=== PATIENT | female | born 1990 | race Caucasian/White ===

== ENCOUNTER 2018-12-01 22:42 | Emergency (ER) | payer SELFPAY ==
[2018-12-01 22:56] VITALS: BP 106/78; PULSE 77; TEMP 98; BMI 26.6
--- NOTE | 2018-12-01 23:04 | PDOC ---
History of Present Illness - General History Source: Patient, EMS, Friend Exam Limitations: No Limitations - History of Present Illness Initial Comments: 12/02/18 00:02 The patient is a 28 year old female with no significant past medical history who presents to the emergency department via EMS with alcohol intoxication since earlier today. As per EMS, the patient was dropped home via [employer] from being out drinking earlier this evening. The patients friends at bedside reports that the patient arrived home without her keys any subsequently EMS was contacted. On exam, patient is initially unaware of her location and is unable to ambulate . the patient denies any fall or head injury. She denies any other complaints. <Yuly Melissa - Last Filed: 12/02/18 00:02> <Christine Aparicio - Last Filed: 12/02/18 00:32> - General Chief Complaint: Alcohol intoxication Stated Complaint: INTOX Time Seen by Provider: 12/01/18 23:03 Past History <Yuly Melissa - Last Filed: 12/02/18 00:02> - Past Medical History COPD: No - Suicide/Smoking/Psychosocial Hx Smoking History: Never smoked Have you smoked in the past 12 months: No Information on smoking cessation initiated: No Hx Alcohol Use: No Drug/Substance Use Hx: No <Christine Aparicio - Last Filed: 12/02/18 00:32> - Past Medical History Allergies/Adverse Reactions: Allergies Allergy/AdvReac Type Severity Reaction Status Date / Time No Known Allergies Allergy Verified 12/01/18 22:56 Review of Systems - Review of Systems Able to Perform ROS?: Yes Comments:: 12/02/18 00:02 GENERAL/CONSTITUTIONAL:(+) etoh intoxication. No fever or chills. No weakness. HEAD, EYES, EARS, NOSE AND THROAT: No change in vision. No ear pain or discharge. No sore throat. GASTROINTESTINAL: No nausea, vomiting, diarrhea or constipation. GENITOURINARY: No dysuria, frequency, or change in urination. CARDIOVASCULAR: No chest pain or shortness of breath. RESPIRATORY: No cough, wheezing, or hemoptysis. MUSCULOSKELETAL: No joint or muscle swelling or pain. No neck or back pain. SKIN: No rash NEUROLOGIC: No headache, vertigo, loss of consciousness, or change in strength/ sensation. ENDOCRINE: No increased thirst. No abnormal weight change. HEMATOLOGIC/LYMPHATIC: No anemia, easy bleeding, or history of blood clots. ALLERGIC/IMMUNOLOGIC: No hives or skin allergy. <Yuly Melissa - Last Filed: 12/02/18 00:02> *Physical Exam - Vital Signs Last Vital Signs Temp Pulse Resp BP Pulse Ox 98.0 F 77 16 106/78 100 12/01/18 22:50 12/01/18 22:50 12/01/18 22:50 12/01/18 22:50 12/01/18 22:50 - Physical Exam Comments: 12/02/18 00:02 GENERAL: Awake, in no acute distress HEAD: No signs of trauma EYES: PERRLA, EOMI, sclera anicteric, conjunctiva clear, visual acuity grossly intact ENT: Auricles normal inspection, hearing grossly normal, nares patent, oropharynx clear without exudates. Moist mucosa NECK: Normal ROM, supple, no lymphadenopathy, JVD, or masses LUNGS: Breath sounds equal, clear to auscultation bilaterally. No wheezes, and no crackles. Normal work of breathing. HEART: Regular rate and rhythm, normal S1 and S2, no murmurs, rubs or gallops ABDOMEN: Soft, nontender, normoactive bowel sounds. No guarding, no rebound. No masses. Non-distended. CHEST WALL: BACK: No midline tenderness. EXTREMITIES: Normal range of motion, no edema. No clubbing or cyanosis. No erythema, or tenderness NEUROLOGICAL: Alert, and fully oriented x4, Cranial nerves II through XII grossly intact. Normal speech, gait deferred. DTRs 2/4 bilaterally. SKIN: Warm, Dry, normal turgor, no rashes or lesions noted. <Yuly Melissa - Last Filed: 12/02/18 00:02> - Vital Signs Last Vital Signs Temp Pulse Resp BP Pulse Ox 98.0 F 77 16 106/78 100 12/01/18 22:50 12/01/18 22:50 12/01/18 22:50 12/01/18 22:50 12/01/18 22:50 <Christine Aparicio - Last Filed: 12/02/18 00:32> Moderate Sedation - Procedure Monitoring Vital Signs: Procedure Monitoring Vital Signs Temperature 98.0 F 12/01/18 22:50 Pulse Rate 77 12/01/18 22:50 Respiratory Rate 16 12/01/18 22:50 Blood Pressure 106/78 12/01/18 22:50 O2 Sat by Pulse Oximetry (%) 100 12/01/18 22:50 <Yuly Melissa - Last Filed: 12/02/18 00:02> - Procedure Monitoring Vital Signs: Procedure Monitoring Vital Signs Temperature 98.0 F 12/01/18 22:50 Pulse Rate 77 12/01/18 22:50 Respiratory Rate 16 12/01/18 22:50 Blood Pressure 106/78 12/01/18 22:50 O2 Sat by Pulse Oximetry (%) 100 12/01/18 22:50 <Christine Aparicio - Last Filed: 12/02/18 00:32> Medical Decision Making - Medical Decision Making 12/02/18 00:27 28-year-old female with admitted history of alcohol use according to friends Patient initially slow to answer questions but is now oriented 4 and ambulating with steady gait on the phone with her boyfriend requesting to go home Patient to be discharged with a sober ride There is no offered history of trauma no outward signs of traumatic injury <Christine Aparicio - Last Filed: 12/02/18 00:32> *DC/Admit/Observation/Transfer - Attestations Scribe Attestion: 12/02/18 00:03 Documentation prepared by Yuly Melissa, acting as medical records assistant for Christine Aparicio DO, MD. <Yuly Melissa - Last Filed: 12/02/18 00:02> - Discharge Dispostion Decision to Admit order: No - Attestations Physician Attestion: 12/02/18 00:31 I, Dr Christine Aparicio, attest that this document has been prepared under my direction and personally reviewed by me in its entirety. I further attest, that it accurately reflects all work, procedures and medical decision making performed by me. <Christine Aparicio - Last Filed: 12/02/18 00:32> Diagnosis at time of Disposition: Alcohol intoxication - Discharge Dispostion Disposition: HOME Condition at time of disposition: Stable - Patient Instructions Printed Discharge Instructions: DI for Alcohol Abuse
== END 2018-12-02 00:42 | disposition home or self-care (01) ==
LOC: JER 22:42
DX: F10.120 Alcohol abuse with intoxication, uncomplicated (principal); Y90.9 Presence of alcohol in blood, level not specified
CPT/HCPCS: 99281-25